=== PATIENT | male | born 1940 | race Asian ===

== ENCOUNTER 2018-02-16 13:31 | Inpatient (IN) | payer MEDICARE, BC ==
[~2018-02-16] VITALS: Ht 160 cm; Wt 54.0 kg
[2018-02-16] MEDS ORDERED: vancomycin/NS 1 GM ADD-VANTAGE 250 ML IV ONE (15:45)
[2018-02-16] MEDS ORDERED: piperacillin/tazo 3.375gm/50ml 50 ML IV ONE (15:45)
[2018-02-16 16:17] LABS: BASOPHILS % (AUTO) 0.1 % (0-1); EOSINOPHILS # (AUTO) 0.1 X10'3 (0-0.9); EOSINOPHILS % (AUTO) 0.5 % (0-6); HEMATOCRIT 38.9 % (42.0-52.0); HEMOGLOBIN 13.3 g/dl (14.0-17.9); LYMPHOCYTES # (AUTO) 0.6 X10'3 (1.1-4.8); LYMPHOCYTES % (AUTO) 4.2 % (21-51); MEAN CORPUSCULAR HEMOGLOBIN 32.1 PG (27.0-31.0); MEAN CORPUSCULAR HGB CONC 34.1 % (33.0-36.5); MEAN CORPUSCULAR VOLUME 93.9 FL (78-98); MEAN PLATELET VOLUME 7.6 FL (7.4-10.4); MONOCYTES # (AUTO) 0.9 X10'3 (0-0.9); MONOCYTES % (AUTO) 6.9 % (2-12); NEUTROPHILS # (AUTO) 11.6 X10'3 (1.8-7.7); NEUTROPHILS % (AUTO) 88.3 % (42-75); PLATELET COUNT 205 X10'3 (140-440); RED BLOOD COUNT 4.14 X10'6 (4.70-6.10); WHITE BLOOD COUNT 13.1 X10'3 (4.5-11.0)
[2018-02-16] MEDS ORDERED: iohexol 300mg/ml 100ml inj. ONE (16:19)
[2018-02-16] MEDS ORDERED: normal saline 1000ML IV soln IVB ONE (16:20)
[2018-02-16 16:23] LABS: CLARITY,URINE CLEAR (Clear); COLOR,URINE YELLOW (Yellow); GLUCOSE, URINE NEGATIVE (Neg); KETONES,URINE TRACE mg/dl (Neg); LEUKOCYTE ESTERASE ,URINE NEGATIVE (Neg); NITRITES, URINE NEGATIVE (Neg); OCCULT BLOOD,URINE MODERATE (Neg); PROTEIN,URINE TRACE mg/dl (Neg)
[2018-02-16 16:28] LABS: UA COLLECTION TYPE CLN CATCH MIDSTREAM
[2018-02-16 16:32] LABS: BACTERIA,URINE FEW /HPF (Neg); SQUAMOUS EPITHELIAL CELL,UR FEW /LPF (FEW); WBC,URINE 0-4 /HPF (0-4)
[2018-02-16 16:36] LABS: ALANINE AMINOTRANSFERASE 18 U/L (12-78); ALBUMIN 2.9 G/DL (3.4-5.0); ALBUMIN/GLOBULIN RATIO 0.7 (1.1-1.5); ALKALINE PHOSPHATASE 88 IU/L (46-116); ANION GAP 11 (8-16); ASPARTATE AMINO TRANSFERASE 16 U/L (10-37); BILIRUBIN,TOTAL 0.4 MG/DL (0.1-1.0); BLOOD UREA NITROGEN 24 MG/DL (7-18); BUN/CREATININE RATIO 14.7 (5.4-32.0); CHLORIDE 102 MMOL/L (99-107); CREATININE 1.63 MG/DL (0.60-1.10); GLUCOSE 100 MG/DL (70-104); POTASSIUM 3.6 MMOL/L (3.5-5.1); SODIUM 136 MMOL/L (135-145); TOTAL CARBON DIOXIDE 23.1 MMOL/L (24-32); TOTAL PROTEIN 7.2 G/DL (6.4-8.2); eGFR 41 ML/MIN
[2018-02-16 16:38] LABS: PARTIAL THROMBOPLASTIN TIME 34 SECONDS (22-32); PROTHROMBIN TIME 9.7 SECONDS (9.0-12.0)
[2018-02-16] MEDS ORDERED: acetaminophen 325mg tablet PO PRN (17:30)
[2018-02-16] MEDS ORDERED: morphine 2 MG/ML inj. syringe IV PRN ×2 (17:30)
[2018-02-16] MEDS ORDERED: potassium Cl 40MEQ/NS 500ml 500 ML IV PRN ×2 (17:30)
[2018-02-16] MEDS ORDERED: magnesium 4gm in 100ml NS 100 ML IV PRN (17:30)
[2018-02-16] MEDS ORDERED: potassium Cl 20 mEq SR tablet PO PRN (17:30)
[2018-02-16] MEDS ORDERED: magnesium Cl slow-release 64mg tablet PO PRN (17:30)
[2018-02-16] MEDS ORDERED: magnesium 1gm/100ml D5W IVPB 100 ML IV PRN (17:30)
[2018-02-16] MEDS ORDERED: ondansetron/PF 4mg/2ml inj IV PRN (17:30)
[2018-02-16] MEDS ORDERED: NIFE60TA69 PO (17:31)
[2018-02-16] MEDS ORDERED: NAPR-56 PO (17:31)
[2018-02-16] MEDS ORDERED: BACDS PO (17:31)
[2018-02-16] MEDS: normal saline 1000ml 1,000 ML IV SCH (18:57)
[2018-02-16 19:50] VITALS: BP 126/63
[2018-02-16] MEDS: piperacillin/tazo 4.5gm/100ml 100 ML IV SCH (23:39)
[2018-02-16 23:57] VITALS: BP 115/59
[2018-02-17 04:55] LABS: BASOPHILS % (AUTO) 0.2 % (0-1); EOSINOPHILS # (AUTO) 0.2 X10'3 (0-0.9); EOSINOPHILS % (AUTO) 2.7 % (0-6); HEMATOCRIT 34.8 % (42.0-52.0); HEMOGLOBIN 11.6 g/dl (14.0-17.9); LYMPHOCYTES # (AUTO) 0.6 X10'3 (1.1-4.8); LYMPHOCYTES % (AUTO) 7.5 % (21-51); MEAN CORPUSCULAR HEMOGLOBIN 31.4 PG (27.0-31.0); MEAN CORPUSCULAR HGB CONC 33.4 % (33.0-36.5); MEAN CORPUSCULAR VOLUME 94.2 FL (78-98); MEAN PLATELET VOLUME 7.9 FL (7.4-10.4); MONOCYTES # (AUTO) 0.7 X10'3 (0-0.9); MONOCYTES % (AUTO) 9.2 % (2-12); NEUTROPHILS # (AUTO) 6.4 X10'3 (1.8-7.7); NEUTROPHILS % (AUTO) 80.4 % (42-75); PLATELET COUNT 180 X10'3 (140-440); RED BLOOD COUNT 3.69 X10'6 (4.70-6.10)
[2018-02-17 05:14] LABS: ALBUMIN 2.3 G/DL (3.4-5.0); ANION GAP 11 (8-16); BLOOD UREA NITROGEN 18 MG/DL (7-18); BUN/CREATININE RATIO 11.9 (5.4-32.0); CALCIUM 7.8 MG/DL (8.5-10.1); CHLORIDE 106 MMOL/L (99-107); CREATININE 1.51 MG/DL (0.60-1.10); GLUCOSE 82 MG/DL (70-104); MAGNESIUM 2.1 MG/DL (1.5-2.4); POTASSIUM 3.1 MMOL/L (3.5-5.1); SODIUM 141 MMOL/L (135-145); TOTAL CARBON DIOXIDE 23.7 MMOL/L (24-32); eGFR 45 ML/MIN
[2018-02-17] MEDS: potassium Cl 20 mEq SR tablet PO PRN ×3 (06:57→21:36)
[2018-02-17 07:00] VITALS: BP 114/63
[2018-02-17] MEDS: piperacillin/tazo 4.5gm/100ml 100 ML IV SCH ×2 (07:00→13:59)
[2018-02-17] MEDS: NIFEdipine XL 30mg tablet PO SCH (07:01)
[2018-02-17] MEDS: K and/or MAG REPLACEMENT MC SCH (08:00)
[2018-02-17 11:00] VITALS: BP 113/58
[2018-02-17] MEDS ORDERED: vancomycin/NS 1 GM ADD-VANTAGE 250 ML IV SCH (17:00)
[2018-02-17] MEDS ORDERED: magnesium hydroxide 30ml (MOM) UD suspension PO PRN (18:50)
[2018-02-17 19:00] VITALS: BP 105/61
[2018-02-17] MEDS: piperacillin/tazobactam inj. 2.25 GM in normal saline 50ml IV IV SCH (20:26)
[2018-02-17] MEDS: docusate sod 100mg capsule PO SCH (21:36)
[2018-02-17] MEDS: HYDROcodone/acetaminophen 5mg/325mg tablet PO PRN (21:37)
[2018-02-18] VITALS: BP 103/55
[2018-02-18] MEDS: piperacillin/tazobactam inj. 2.25 GM in normal saline 50ml IV IV SCH ×4 (02:10→20:06)
[2018-02-18] MEDS: normal saline 1000ml 1,000 ML IV SCH (02:10)
[2018-02-18 05:17] LABS: BASOPHILS % (AUTO) 0.2 % (0-1); EOSINOPHILS # (AUTO) 0.2 X10'3 (0-0.9); EOSINOPHILS % (AUTO) 2.6 % (0-6); HEMATOCRIT 36.6 % (42.0-52.0); HEMOGLOBIN 12.3 g/dl (14.0-17.9); LYMPHOCYTES % (AUTO) 14.2 % (21-51); MEAN CORPUSCULAR HEMOGLOBIN 31.6 PG (27.0-31.0); MEAN CORPUSCULAR HGB CONC 33.5 % (33.0-36.5); MEAN CORPUSCULAR VOLUME 94.4 FL (78-98); MEAN PLATELET VOLUME 7.8 FL (7.4-10.4); MONOCYTES # (AUTO) 0.7 X10'3 (0-0.9); MONOCYTES % (AUTO) 10.2 % (2-12); NEUTROPHILS # (AUTO) 5.3 X10'3 (1.8-7.7); NEUTROPHILS % (AUTO) 72.8 % (42-75); PLATELET COUNT 211 X10'3 (140-440); RED BLOOD COUNT 3.88 X10'6 (4.70-6.10); RED CELL DISTRIBUTION WIDTH 13.8 % (11.5-14.5); WHITE BLOOD COUNT 7.3 X10'3 (4.5-11.0)
[2018-02-18 05:26] LABS: ALBUMIN 2.4 G/DL (3.4-5.0); ANION GAP 9 (8-16); BLOOD UREA NITROGEN 18 MG/DL (7-18); BUN/CREATININE RATIO 11.3 (5.4-32.0); CALCIUM 8.7 MG/DL (8.5-10.1); CHLORIDE 108 MMOL/L (99-107); CREATININE 1.59 MG/DL (0.60-1.10); GLUCOSE 94 MG/DL (70-104); MAGNESIUM 2.1 MG/DL (1.5-2.4); POTASSIUM 4.2 MMOL/L (3.5-5.1); SODIUM 142 MMOL/L (135-145); TOTAL CARBON DIOXIDE 24.6 MMOL/L (24-32); eGFR 43 ML/MIN
[2018-02-18 07:00] VITALS: BP 130/73
[2018-02-18] MEDS: K and/or MAG REPLACEMENT MC SCH (08:00)
[2018-02-18] MEDS: lactobacillus rhamnosus 10,000 MMU CELLS/CAPSULE PO SCH ×2 (08:28→20:06)
[2018-02-18] MEDS: docusate sod 100mg capsule PO SCH ×2 (08:28→20:06)
[2018-02-18] MEDS: NIFEdipine XL 30mg tablet PO SCH (08:28)
[2018-02-18 11:00] VITALS: BP 109/56
[2018-02-18 19:00] VITALS: BP 104/62
[2018-02-18] MEDS: HYDROcodone/acetaminophen 5mg/325mg tablet PO PRN (20:07)
[2018-02-18 23:00] VITALS: BP 134/62
[2018-02-19] MEDS: piperacillin/tazobactam inj. 2.25 GM in normal saline 50ml IV IV SCH ×4 (02:25→19:42)
[2018-02-19 05:08] LABS: BASOPHILS % (AUTO) 0.5 % (0-1); EOSINOPHILS # (AUTO) 0.2 X10'3 (0-0.9); EOSINOPHILS % (AUTO) 3.2 % (0-6); HEMATOCRIT 37.5 % (42.0-52.0); HEMOGLOBIN 12.4 g/dl (14.0-17.9); LYMPHOCYTES # (AUTO) 0.9 X10'3 (1.1-4.8); LYMPHOCYTES % (AUTO) 13.2 % (21-51); MEAN CORPUSCULAR HEMOGLOBIN 31.5 PG (27.0-31.0); MEAN CORPUSCULAR HGB CONC 33.2 % (33.0-36.5); MEAN PLATELET VOLUME 7.9 FL (7.4-10.4); MONOCYTES # (AUTO) 0.8 X10'3 (0-0.9); MONOCYTES % (AUTO) 11.4 % (2-12); NEUTROPHILS % (AUTO) 71.7 % (42-75); PLATELET COUNT 220 X10'3 (140-440); RED BLOOD COUNT 3.95 X10'6 (4.70-6.10); WHITE BLOOD COUNT 6.9 X10'3 (4.5-11.0)
[2018-02-19 05:19] LABS: ANION GAP 9 (8-16); BLOOD UREA NITROGEN 16 MG/DL (7-18); BUN/CREATININE RATIO 12.8 (5.4-32.0); CHLORIDE 107 MMOL/L (99-107); CREATININE 1.25 MG/DL (0.60-1.10); GLUCOSE 80 MG/DL (70-104); POTASSIUM 3.6 MMOL/L (3.5-5.1); SODIUM 141 MMOL/L (135-145)
[2018-02-19 05:20] LABS: ALBUMIN 2.3 G/DL (3.4-5.0); CALCIUM 8.2 MG/DL (8.5-10.1); MAGNESIUM 2.2 MG/DL (1.5-2.4); eGFR 56 ML/MIN
[2018-02-19 07:00] VITALS: BP 138/62
[2018-02-19] MEDS: lactobacillus rhamnosus 10,000 MMU CELLS/CAPSULE PO SCH ×2 (07:19→19:42)
[2018-02-19] MEDS: docusate sod 100mg capsule PO SCH ×2 (07:19→19:42)
[2018-02-19] MEDS: NIFEdipine XL 30mg tablet PO SCH (07:20)
[2018-02-19] MEDS: HYDROcodone/acetaminophen 5mg/325mg tablet PO PRN ×2 (07:21→11:33)
[2018-02-19] MEDS: K and/or MAG REPLACEMENT MC SCH (08:00)
[2018-02-19 11:39] VITALS: BP 103/66
[2018-02-19] MEDS ORDERED: VANCOMYCIN LEVEL IV ONE (16:30)
[2018-02-19] MEDS: heparin, porcine 5000 units/ml vial SQ SCH (19:43)
[2018-02-19 20:00] VITALS: BP 131/63
[2018-02-20] VITALS: BP 132/64
[2018-02-20] MEDS: piperacillin/tazobactam inj. 2.25 GM in normal saline 50ml IV IV SCH ×4 (01:42→19:54)
[2018-02-20 05:30] LABS: BASOPHILS % (AUTO) 0.2 % (0-1); EOSINOPHILS # (AUTO) 0.3 X10'3 (0-0.9); EOSINOPHILS % (AUTO) 3.7 % (0-6); HEMATOCRIT 36.8 % (42.0-52.0); HEMOGLOBIN 12.4 g/dl (14.0-17.9); LYMPHOCYTES # (AUTO) 1.2 X10'3 (1.1-4.8); LYMPHOCYTES % (AUTO) 15.5 % (21-51); MEAN CORPUSCULAR HEMOGLOBIN 31.7 PG (27.0-31.0); MEAN CORPUSCULAR HGB CONC 33.6 % (33.0-36.5); MEAN CORPUSCULAR VOLUME 94.4 FL (78-98); MEAN PLATELET VOLUME 7.9 FL (7.4-10.4); MONOCYTES # (AUTO) 0.9 X10'3 (0-0.9); MONOCYTES % (AUTO) 10.8 % (2-12); NEUTROPHILS # (AUTO) 5.6 X10'3 (1.8-7.7); NEUTROPHILS % (AUTO) 69.8 % (42-75); PLATELET COUNT 251 X10'3 (140-440); RED BLOOD COUNT 3.89 X10'6 (4.70-6.10); RED CELL DISTRIBUTION WIDTH 13.9 % (11.5-14.5)
[2018-02-20 05:45] LABS: ALBUMIN 2.3 G/DL (3.4-5.0); ANION GAP 9 (8-16); BLOOD UREA NITROGEN 20 MG/DL (7-18); CALCIUM 8.6 MG/DL (8.5-10.1); CHLORIDE 106 MMOL/L (99-107); CREATININE 1.33 MG/DL (0.60-1.10); GLUCOSE 83 MG/DL (70-104); MAGNESIUM 2.3 MG/DL (1.5-2.4); POTASSIUM 3.6 MMOL/L (3.5-5.1); SODIUM 140 MMOL/L (135-145); TOTAL CARBON DIOXIDE 24.7 MMOL/L (24-32); eGFR 52 ML/MIN
[2018-02-20] MEDS: NIFEdipine XL 30mg tablet PO SCH (06:50)
[2018-02-20] MEDS: HYDROcodone/acetaminophen 5mg/325mg tablet PO PRN ×2 (06:50→19:56)
[2018-02-20] MEDS: lactobacillus rhamnosus 10,000 MMU CELLS/CAPSULE PO SCH ×2 (06:51→19:54)
[2018-02-20] MEDS: docusate sod 100mg capsule PO SCH ×2 (06:51→19:56)
[2018-02-20] MEDS: heparin, porcine 5000 units/ml vial SQ SCH ×2 (06:52→19:55)
[2018-02-20 07:00] VITALS: BP 109/72
[2018-02-20] MEDS: K and/or MAG REPLACEMENT MC SCH (08:00)
[2018-02-20 11:00] VITALS: BP 100/55
[2018-02-20 19:00] VITALS: BP 120/67
[2018-02-21 00:04] VITALS: BP 125/60
[2018-02-21] MEDS: piperacillin/tazobactam inj. 2.25 GM in normal saline 50ml IV IV SCH ×4 (01:56→19:54)
[2018-02-21 05:12] LABS: BASOPHILS % (AUTO) 0.4 % (0-1); EOSINOPHILS # (AUTO) 0.3 X10'3 (0-0.9); EOSINOPHILS % (AUTO) 4.1 % (0-6); HEMATOCRIT 38.1 % (42.0-52.0); HEMOGLOBIN 12.8 g/dl (14.0-17.9); LYMPHOCYTES # (AUTO) 1.7 X10'3 (1.1-4.8); LYMPHOCYTES % (AUTO) 24.7 % (21-51); MEAN CORPUSCULAR HEMOGLOBIN 31.9 PG (27.0-31.0); MEAN CORPUSCULAR HGB CONC 33.7 % (33.0-36.5); MEAN CORPUSCULAR VOLUME 94.6 FL (78-98); MEAN PLATELET VOLUME 7.6 FL (7.4-10.4); MONOCYTES # (AUTO) 0.7 X10'3 (0-0.9); MONOCYTES % (AUTO) 10.8 % (2-12); PLATELET COUNT 298 X10'3 (140-440); RED BLOOD COUNT 4.02 X10'6 (4.70-6.10); RED CELL DISTRIBUTION WIDTH 13.9 % (11.5-14.5); WHITE BLOOD COUNT 6.7 X10'3 (4.5-11.0)
[2018-02-21 05:24] LABS: ALBUMIN 2.4 G/DL (3.4-5.0); ANION GAP 9 (8-16); BLOOD UREA NITROGEN 18 MG/DL (7-18); BUN/CREATININE RATIO 13.2 (5.4-32.0); CHLORIDE 105 MMOL/L (99-107); CREATININE 1.36 MG/DL (0.60-1.10); GLUCOSE 82 MG/DL (70-104); MAGNESIUM 2.3 MG/DL (1.5-2.4); POTASSIUM 3.6 MMOL/L (3.5-5.1); SODIUM 141 MMOL/L (135-145); TOTAL CARBON DIOXIDE 27.4 MMOL/L (24-32); eGFR 51 ML/MIN
[2018-02-21] MEDS: HYDROcodone/acetaminophen 5mg/325mg tablet PO PRN (06:30)
[2018-02-21 08:00] VITALS: BP 136/69
[2018-02-21] MEDS: K and/or MAG REPLACEMENT MC SCH (08:00)
[2018-02-21] MEDS: lactobacillus rhamnosus 10,000 MMU CELLS/CAPSULE PO SCH ×2 (08:11→19:55)
[2018-02-21] MEDS: NIFEdipine XL 30mg tablet PO SCH (08:11)
[2018-02-21] MEDS: docusate sod 100mg capsule PO SCH ×2 (08:12→19:54)
[2018-02-21] MEDS: heparin, porcine 5000 units/ml vial SQ SCH ×2 (08:12→19:55)
[2018-02-21 11:00] VITALS: BP 123/66
[2018-02-21 19:26] VITALS: BP 128/63
[2018-02-22] VITALS (20 sets, daily range): BP systolic 105–147; BP diastolic 51–86
[2018-02-22] MEDS: piperacillin/tazobactam inj. 2.25 GM in normal saline 50ml IV IV SCH ×4 (02:15→20:24)
[2018-02-22 04:57] LABS: MAGNESIUM 2.3 MG/DL (1.5-2.4)
[2018-02-22] MEDS: heparin, porcine 5000 units/ml vial SQ SCH ×2 (07:36→20:30)
[2018-02-22 07:44] LABS: BASOPHILS % (AUTO) 0.5 % (0-1); EOSINOPHILS # (AUTO) 0.3 X10'3 (0-0.9); EOSINOPHILS % (AUTO) 4.4 % (0-6); HEMATOCRIT 35.9 % (42.0-52.0); HEMOGLOBIN 12.1 g/dl (14.0-17.9); LYMPHOCYTES # (AUTO) 1.1 X10'3 (1.1-4.8); LYMPHOCYTES % (AUTO) 17.3 % (21-51); MEAN CORPUSCULAR HEMOGLOBIN 31.7 PG (27.0-31.0); MEAN CORPUSCULAR HGB CONC 33.8 % (33.0-36.5); MONOCYTES # (AUTO) 0.6 X10'3 (0-0.9); MONOCYTES % (AUTO) 9.1 % (2-12); NEUTROPHILS # (AUTO) 4.2 X10'3 (1.8-7.7); NEUTROPHILS % (AUTO) 68.7 % (42-75); PLATELET COUNT 303 X10'3 (140-440); RED BLOOD COUNT 3.82 X10'6 (4.70-6.10); RED CELL DISTRIBUTION WIDTH 13.7 % (11.5-14.5); WHITE BLOOD COUNT 6.2 X10'3 (4.5-11.0)
[2018-02-22 07:58] LABS: ALANINE AMINOTRANSFERASE 23 U/L (12-78); ALBUMIN 2.3 G/DL (3.4-5.0); ALBUMIN/GLOBULIN RATIO 0.5 (1.1-1.5); ALKALINE PHOSPHATASE 68 IU/L (46-116); ANION GAP 8 (8-16); ASPARTATE AMINO TRANSFERASE 21 U/L (10-37); BILIRUBIN,TOTAL 0.3 MG/DL (0.1-1.0); BLOOD UREA NITROGEN 22 MG/DL (7-18); BUN/CREATININE RATIO 16.2 (5.4-32.0); CHLORIDE 107 MMOL/L (99-107); CREATININE 1.36 MG/DL (0.60-1.10); GLUCOSE 88 MG/DL (70-104); SODIUM 141 MMOL/L (135-145); TOTAL CARBON DIOXIDE 26.3 MMOL/L (24-32); TOTAL PROTEIN 6.8 G/DL (6.4-8.2); eGFR 51 ML/MIN
[2018-02-22] MEDS: K and/or MAG REPLACEMENT MC SCH (08:00)
[2018-02-22] MEDS: lactobacillus rhamnosus 10,000 MMU CELLS/CAPSULE PO SCH ×2 (08:00→20:30)
[2018-02-22] MEDS: docusate sod 100mg capsule PO SCH ×2 (08:00→20:30)
[2018-02-22 08:15] LABS: PROTHROMBIN TIME 9.9 SECONDS (9.0-12.0)
[2018-02-22] MEDS: NIFEdipine XL 30mg tablet PO SCH (08:45)
[2018-02-22] MEDS: normal saline 1000ml 1,000 ML IV SCH ×2 (09:09→20:31)
[2018-02-22] MEDS ORDERED: ceFAZolin 1000mg inj ONE (12:27)
[2018-02-22] MEDS ORDERED: sevoflurane 250ml liquid IH ONE (12:48)
[2018-02-22] MEDS ORDERED: propofol inj 20 ML IV ONE (12:51)
[2018-02-22] MEDS ORDERED: midazolam 2 mg/2 ml injection ONE (12:51)
[2018-02-22] MEDS ORDERED: fentaNYL/PF 50MCG/1 ML 2ML syringe ONE (12:51)
[2018-02-22] MEDS ORDERED: proCHLORperazine 10 MG/2 ml inj IV PRN (13:10)
[2018-02-22] MEDS ORDERED: meperidine/PF 25mg/ml syringe IV PRN ×3 (13:10)
[2018-02-22] MEDS ORDERED: ondansetron/PF 4mg/2ml inj IV PRN (13:10)
[2018-02-22] MEDS ORDERED: morphine 4 MG/ML inj SYRINge IV PRN ×2 (13:10)
[2018-02-22] MEDS ORDERED: ringers solution, lacted 1,000 ML IV SCH (13:10)
[2018-02-22] MEDS: HYDROcodone/acetaminophen 5mg/325mg tablet PO PRN (15:37)
[2018-02-23] VITALS: BP 116/63
[2018-02-23] MEDS: piperacillin/tazobactam inj. 2.25 GM in normal saline 50ml IV IV SCH ×2 (02:07→09:22)
[2018-02-23 05:51] LABS: MAGNESIUM 2.3 MG/DL (1.5-2.4)
[2018-02-23] MEDS: NIFEdipine XL 30mg tablet PO SCH (07:45)
[2018-02-23] MEDS: lactobacillus rhamnosus 10,000 MMU CELLS/CAPSULE PO SCH ×2 (07:45→19:42)
[2018-02-23] MEDS: docusate sod 100mg capsule PO SCH ×2 (07:46→19:42)
[2018-02-23] MEDS: heparin, porcine 5000 units/ml vial SQ SCH ×2 (07:47→19:42)
[2018-02-23] MEDS: K and/or MAG REPLACEMENT MC SCH (08:00)
[2018-02-23 09:10] LABS: ALANINE AMINOTRANSFERASE 38 U/L (12-78); ALBUMIN 2.2 G/DL (3.4-5.0); ALBUMIN/GLOBULIN RATIO 0.5 (1.1-1.5); ALKALINE PHOSPHATASE 67 IU/L (46-116); ANION GAP 12 (8-16); ASPARTATE AMINO TRANSFERASE 49 U/L (10-37); BILIRUBIN,TOTAL 0.4 MG/DL (0.1-1.0); BLOOD UREA NITROGEN 16 MG/DL (7-18); BUN/CREATININE RATIO 12.2 (5.4-32.0); CALCIUM 8.2 MG/DL (8.5-10.1); CHLORIDE 107 MMOL/L (99-107); CREATININE 1.31 MG/DL (0.60-1.10); GLUCOSE 75 MG/DL (70-104); POTASSIUM 3.8 MMOL/L (3.5-5.1); SODIUM 143 MMOL/L (135-145); TOTAL CARBON DIOXIDE 23.8 MMOL/L (24-32); TOTAL PROTEIN 6.7 G/DL (6.4-8.2); eGFR 53 ML/MIN
[2018-02-23 09:37] LABS: BASOPHILS % (AUTO) 0.3 % (0-1); EOSINOPHILS # (AUTO) 0.2 X10'3 (0-0.9); EOSINOPHILS % (AUTO) 3.1 % (0-6); HEMATOCRIT 35.5 % (42.0-52.0); HEMOGLOBIN 11.8 g/dl (14.0-17.9); LYMPHOCYTES % (AUTO) 16.5 % (21-51); MEAN CORPUSCULAR HEMOGLOBIN 31.3 PG (27.0-31.0); MEAN CORPUSCULAR HGB CONC 33.3 % (33.0-36.5); MEAN CORPUSCULAR VOLUME 94.1 FL (78-98); MEAN PLATELET VOLUME 7.6 FL (7.4-10.4); MONOCYTES # (AUTO) 0.5 X10'3 (0-0.9); MONOCYTES % (AUTO) 7.8 % (2-12); NEUTROPHILS # (AUTO) 4.2 X10'3 (1.8-7.7); NEUTROPHILS % (AUTO) 72.3 % (42-75); PLATELET COUNT 339 X10'3 (140-440); RED BLOOD COUNT 3.77 X10'6 (4.70-6.10); RED CELL DISTRIBUTION WIDTH 14.1 % (11.5-14.5); WHITE BLOOD COUNT 5.8 X10'3 (4.5-11.0)
[2018-02-23] MEDS: normal saline 1000ml 1,000 ML IV SCH (11:11)
[2018-02-23 11:49] VITALS: BP 107/68
[2018-02-23] MEDS ORDERED: vancomycin/NS 1 GM ADD-VANTAGE 250 ML IV SCH (12:45)
[2018-02-23 20:00] VITALS: BP 129/60
[2018-02-24] VITALS: BP 138/70
[2018-02-24] MEDS: normal saline 1000ml 1,000 ML IV SCH (01:25)
[2018-02-24 07:47] VITALS: BP 134/71
[2018-02-24] MEDS: K and/or MAG REPLACEMENT MC SCH (08:00)
[2018-02-24] MEDS: lactobacillus rhamnosus 10,000 MMU CELLS/CAPSULE PO SCH (09:44)
[2018-02-24] MEDS: docusate sod 100mg capsule PO SCH (09:44)
[2018-02-24] MEDS: heparin, porcine 5000 units/ml vial SQ SCH (09:45)
[2018-02-24] MEDS: NIFEdipine XL 30mg tablet PO SCH (09:45)
[2018-02-24] MEDS ORDERED: HYDR-4383 PO (12:17)
[2018-02-24] MEDS ORDERED: LINE600T36 PO (12:17)
[2018-02-24 12:20] VITALS: BP 149/69
[2018-02-24] MEDS ORDERED: vancomycin/NS 1 GM ADD-VANTAGE 250 ML IV SCH (13:00)
[2018-02-27] MEDS ORDERED: VANCOMYCIN LEVEL IV ONE (12:30)
== END 2018-02-24 16:52 | disposition home health service (06) | DRG 854 ==
LOC: ER 13:31 → ED HOLD 17:29 → SUR 3N 19:11 → PACU 02-22 12:47 → SUR 3N 02-22 14:48
PROVIDERS: ADMIT Internal Medicine; ATTEND Internal Medicine
PROC: BW211ZZ Computerized Tomography (CT Scan) of Abdomen and Pelvis using Low Osmolar Contrast (ICD-10-PCS; 2018-02-16)
PROC: 0Y960ZZ Drainage of Left Inguinal Region, Open Approach (ICD-10-PCS; 2018-02-22)
PROC: 0JDC0ZZ Extraction of Pelvic Region Subcutaneous Tissue and Fascia, Open Approach (ICD-10-PCS; principal; 2018-02-22 12:48)
DX: A41.9 Sepsis, unspecified organism (principal); L03.314 Cellulitis of groin; E44.0 Moderate protein-calorie malnutrition; L03.116 Cellulitis of left lower limb; L02.214 Cutaneous abscess of groin; B95.62 Methicillin resistant Staphylococcus aureus infection as the cause of diseases classified elsewhere; I12.9 Hypertensive chronic kidney disease with stage 1 through stage 4 chronic kidney disease, or unspecified chronic kidney disease; N18.2 Chronic kidney disease, stage 2 (mild); J44.9 Chronic obstructive pulmonary disease, unspecified; N40.0 Benign prostatic hyperplasia without lower urinary tract symptoms; N28.1 Cyst of kidney, acquired; M10.9 Gout, unspecified; R59.1 Generalized enlarged lymph nodes; Z66 Do not resuscitate; Z79.899 Other long term (current) drug therapy; Z87.442 Personal history of urinary calculi; Z68.21 Body mass index [BMI] 21.0-21.9, adult
CPT/HCPCS: 36415; 71045; 73600; 73721; 74177; 80048; 80053; 81001; 83605; 83735; 84145; 85025; 85610; 85730; 87040; 87070; 87077; 87186; 93005; 96365; 96375; 99285; A7000; G0378; J0690; J1644; J2250; J2543; J2704; J3010; J3370; J7030; J7120; Q9967

== ENCOUNTER 2018-02-25 05:49 | Emergency (ER) | payer MEDICARE, BC ==
[~2018-02-25] VITALS: Ht 160 cm; Wt 56.8 kg
[~2018-02-25 05:49] MED LIST: HYDR-4383 PO; LINE600T36 PO; NIFE60TA69 PO
[2018-02-25 05:57] VITALS: BP 128/73
== END 2018-02-25 09:54 | disposition home or self-care (01) ==
LOC: ER 05:50
DX: Z48.01 Encounter for change or removal of surgical wound dressing (principal); I10 Essential (primary) hypertension
CPT/HCPCS: 99282

== ENCOUNTER 2018-02-27 12:28 | Emergency (ER) | payer MEDICARE, BC ==
[~2018-02-27] VITALS: Ht 160 cm; Wt 62.3 kg
[2018-02-27 12:58] VITALS: BP 125/60
[2018-02-28] MEDS ORDERED: PRED20TA PO (09:20)
== END 2018-02-27 13:37 | disposition home or self-care (01) ==
LOC: ER 12:29
DX: L02.214 Cutaneous abscess of groin (principal); I10 Essential (primary) hypertension
CPT/HCPCS: 99282

== ENCOUNTER 2018-02-28 08:51 | Day surgery (SDC) | payer MEDICARE, BC ==
[2018-02-28] MEDS ORDERED: PRED20TA PO (09:20)
[2018-02-28] MEDS ORDERED: LIDOcaine 2% 5ml jelly MM ONE (12:40)
== END 2018-02-28 11:02 | disposition home or self-care (01) ==
LOC: WOUND CARE 08:51
PROVIDERS: ATTEND Surgery
DX: T81.89XA Other complications of procedures, not elsewhere classified, initial encounter (principal); L98.492 Non-pressure chronic ulcer of skin of other sites with fat layer exposed; L02.214 Cutaneous abscess of groin; I10 Essential (primary) hypertension; J44.9 Chronic obstructive pulmonary disease, unspecified; M10.9 Gout, unspecified; E44.0 Moderate protein-calorie malnutrition; N40.0 Benign prostatic hyperplasia without lower urinary tract symptoms; Z79.899 Other long term (current) drug therapy; Z87.442 Personal history of urinary calculi; Z68.21 Body mass index [BMI] 21.0-21.9, adult
CPT/HCPCS: 97605

== ENCOUNTER 2018-03-06 09:19 | Day surgery (SDC) | payer MEDICARE, BC ==
[~2018-03-06 09:19] MED LIST changes: +PRED20TA PO
== END 2018-03-06 12:01 | disposition home or self-care (01) ==
LOC: WOUND CARE 09:19
PROVIDERS: ATTEND Surgery
DX: T81.89XD Other complications of procedures, not elsewhere classified, subsequent encounter (principal); L98.492 Non-pressure chronic ulcer of skin of other sites with fat layer exposed; L02.214 Cutaneous abscess of groin; I10 Essential (primary) hypertension; J44.9 Chronic obstructive pulmonary disease, unspecified; M10.9 Gout, unspecified; E44.0 Moderate protein-calorie malnutrition; N40.0 Benign prostatic hyperplasia without lower urinary tract symptoms; Z79.899 Other long term (current) drug therapy; Z87.442 Personal history of urinary calculi; Z68.21 Body mass index [BMI] 21.0-21.9, adult
CPT/HCPCS: 97597; A4456

== ENCOUNTER 2018-03-14 09:12 | Day surgery (SDC) | payer MEDICARE, BC ==
[~2018-03-14 09:12] MED LIST changes: -LINE600T36 PO
== END 2018-03-14 10:55 | disposition home or self-care (01) ==
LOC: WOUND CARE 09:12
PROVIDERS: ATTEND Surgery
DX: T81.89XD Other complications of procedures, not elsewhere classified, subsequent encounter (principal); L98.492 Non-pressure chronic ulcer of skin of other sites with fat layer exposed; L02.214 Cutaneous abscess of groin; I10 Essential (primary) hypertension; J44.9 Chronic obstructive pulmonary disease, unspecified; M10.9 Gout, unspecified; E44.0 Moderate protein-calorie malnutrition; N40.0 Benign prostatic hyperplasia without lower urinary tract symptoms; Z79.899 Other long term (current) drug therapy; Z87.442 Personal history of urinary calculi; Z68.21 Body mass index [BMI] 21.0-21.9, adult; Y83.8 Other surgical procedures as the cause of abnormal reaction of the patient, or of later complication, without mention of misadventure at the time of the procedure
CPT/HCPCS: 97597; A6021; A6212

== ENCOUNTER 2018-03-21 09:00 | Day surgery (SDC) | payer MEDICARE, BC | END 2018-03-21 10:22 | disposition home or self-care (01) | LOC: WOUND CARE 09:00 | PROVIDERS: ATTEND Surgery | DX: T81.89XD Other complications of procedures, not elsewhere classified, subsequent encounter (principal); L98.492 Non-pressure chronic ulcer of skin of other sites with fat layer exposed; L02.214 Cutaneous abscess of groin; I10 Essential (primary) hypertension; J44.9 Chronic obstructive pulmonary disease, unspecified; M10.9 Gout, unspecified; E44.0 Moderate protein-calorie malnutrition; N40.0 Benign prostatic hyperplasia without lower urinary tract symptoms; Z79.899 Other long term (current) drug therapy; Z87.442 Personal history of urinary calculi; Z68.21 Body mass index [BMI] 21.0-21.9, adult; Y83.8 Other surgical procedures as the cause of abnormal reaction of the patient, or of later complication, without mention of misadventure at the time of the procedure | CPT/HCPCS: 17250; A6021; A6212 ==

== ENCOUNTER 2018-04-04 09:20 | Outpatient (CLI) | payer MEDICARE, BC | END 2018-04-04 10:40 | disposition home or self-care (01) | LOC: WOUND CARE 09:20 → EDSTATUS 09:30 → WOUND CARE 10:40 | PROVIDERS: ATTEND Surgery | DX: T81.89XD Other complications of procedures, not elsewhere classified, subsequent encounter (principal); L98.492 Non-pressure chronic ulcer of skin of other sites with fat layer exposed; L02.214 Cutaneous abscess of groin; I10 Essential (primary) hypertension; J44.9 Chronic obstructive pulmonary disease, unspecified; M10.9 Gout, unspecified; E44.0 Moderate protein-calorie malnutrition; N40.0 Benign prostatic hyperplasia without lower urinary tract symptoms; Z79.899 Other long term (current) drug therapy; Z87.442 Personal history of urinary calculi; Z68.21 Body mass index [BMI] 21.0-21.9, adult; Y83.8 Other surgical procedures as the cause of abnormal reaction of the patient, or of later complication, without mention of misadventure at the time of the procedure | CPT/HCPCS: G0463 ==

== ENCOUNTER 2018-09-07 18:01 | Emergency (ER) | payer MEDICARE, BC ==
[~2018-09-07] VITALS: Ht 160 cm; Wt 61.4 kg
[2018-09-07 18:20] VITALS: BP 151/62
[2018-09-07 18:49] LABS: BASOPHILS % (AUTO) 0.8 % (0-1); EOSINOPHILS # (AUTO) 0.2 X10'3 (0-0.9); EOSINOPHILS % (AUTO) 4.3 % (0-6); HEMATOCRIT 41.4 % (42.0-52.0); HEMOGLOBIN 14.1 g/dl (14.0-17.9); LYMPHOCYTES # (AUTO) 1.6 X10'3 (1.1-4.8); MEAN CORPUSCULAR HEMOGLOBIN 30.6 PG (27.0-31.0); MEAN CORPUSCULAR HGB CONC 34.1 g/dL (33.0-36.5); MEAN CORPUSCULAR VOLUME 89.8 FL (78-98); MEAN PLATELET VOLUME 7.4 FL (7.4-10.4); MONOCYTES # (AUTO) 0.4 X10'3 (0-0.9); NEUTROPHILS # (AUTO) 2.9 X10'3 (1.8-7.7); NEUTROPHILS % (AUTO) 55.9 % (42-75); PLATELET COUNT 201 X10'3 (140-440); RED BLOOD COUNT 4.62 X10'6 (4.70-6.10); RED CELL DISTRIBUTION WIDTH 15.3 % (11.5-14.5); WHITE BLOOD COUNT 5.2 X10'3 (4.5-11.0)
[2018-09-07 19:03] LABS: ALANINE AMINOTRANSFERASE 23 U/L (12-78); ALBUMIN 3.7 G/DL (3.4-5.0); ALBUMIN/GLOBULIN RATIO 1.1 (1.1-1.5); ALKALINE PHOSPHATASE 95 IU/L (46-116); AMYLASE 100 U/L (25-115); ANION GAP 8 (8-16); ASPARTATE AMINO TRANSFERASE 25 U/L (10-37); BILIRUBIN,TOTAL 0.3 MG/DL (0.1-1.0); BLOOD UREA NITROGEN 19 MG/DL (7-18); BUN/CREATININE RATIO 14.4 (5.4-32.0); CALCIUM 8.6 MG/DL (8.5-10.1); CHLORIDE 106 MMOL/L (99-107); CREATININE 1.32 MG/DL (0.60-1.10); GLUCOSE 101 MG/DL (70-104); LIPASE 269 U/L (73-393); POTASSIUM 3.6 MMOL/L (3.5-5.1); SODIUM 141 MMOL/L (135-145); TOTAL CARBON DIOXIDE 27.5 MMOL/L (24-32); TOTAL PROTEIN 7.1 G/DL (6.4-8.2); eGFR 53 ML/MIN
[2018-09-07] MEDS ORDERED: ondansetron 4mg rapidly disintigrating tab PO ONE (20:10)
[2018-09-07] MEDS ORDERED: meclizine 12.5mg tablet PO ONE (20:10)
--- NOTE | 2018-09-07 20:17 | NUR ---
BLUE ENTREPRENEURIAL FINANCE PROFESSOR PHONE SET UP FOR MD TO SPEAK WITH PATIENT. ENTREPRENEURIAL FINANCE PROFESSOR NATHAN, ID # [id number].
--- NOTE | 2018-09-07 20:23 | NUR ---
MD AT BEDSIDE SPEAKING WITH PATIENT USING OPINION POLLS SURVEY WORKER PHONE LINE.
[2018-09-07] MEDS ORDERED: amoxicillin 250mg capsule PO ONE (20:40)
[2018-09-07] MEDS ORDERED: AMOX500C2 PO (20:41)
[2018-09-07] MEDS ORDERED: ONDA8TAB6 PO (20:41)
[2018-09-07] MEDS ORDERED: MECL12.584 PO (20:41)
== END 2018-09-07 20:54 | disposition home or self-care (01) ==
LOC: ER 20:54
DX: H81.10 Benign paroxysmal vertigo, unspecified ear (principal); H66.92 Otitis media, unspecified, left ear; I10 Essential (primary) hypertension; M10.9 Gout, unspecified; Z87.442 Personal history of urinary calculi; Z79.2 Long term (current) use of antibiotics; Z79.899 Other long term (current) drug therapy
CPT/HCPCS: 36415; 80053; 82150; 83690; 85025; 85610; 93005; 99284; J8597

== ENCOUNTER 2024-09-08 19:15 | Emergency (ER) | payer MEDICARE, BC ==
[~2024-09-08 19:15] MED LIST changes: +FLUT12AE4 INH; +MECL-226 PO; +NIFE-33 PO; -NIFE60TA69 PO; +ONDA8TAB6 PO
[2024-09-08 19:17] VITALS: TEMP 98.2
--- NOTE | 2024-09-08 19:32 | ELECTROCARDIOGRAPH REPORT ---
[facility] Test Date: 2024-09-08 Test Time: 19:29:03 Pat Name: FLORA DUMONT Department: [facility]-ER Patient ID: [facility]-[id number] Room: Gender: M President/[employer] Experiences: KAMALA : 1940 Requested By: LYNN SHUKLA Order Number: [id number] Reading MD: Measurements Intervals [place] Rate: 57 P: 72 ND: 143 QRS: 69 QRSD: 101 T: 114 QT: 400 QTc: 390 Interpretive Statements Sinus bradycardia Probable anteroseptal infarct, recent Please click the below link to view image of tracing.
--- NOTE | 2024-09-08 19:38 | Physician Documentation ---
History of Present Illness ~ Chief Complaint: Dizziness Stated Complaint: WEAKNESS Time Seen by MD: 19:27 Primary Medical Doctor: Dr. Means [facility] This is a 83-year-old male who presents with one day of nausea, vomiting, and feeling of lightheadedness onset at 4:00 p.m. today, patient reports no aggravating or relieving factors. Patient is accompanied by his who reports patient has not had any change in speech or appearance of the weakness or facial drooping. Patient reports he recently finished a course of antibiotics for an upper respiratory tract infection. 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 She reports no other acute symptoms or concerns including headache, no numbness, no focal weakness. Medication Reconciliation Allergies: Coded Allergies: No Known Allergies (Unverified , 06/16/14) Scheduled Fluticasone/Salmeterol (Advair Hfa 115-21 Mcg Inhaler), 2 PUFFS INH Q12H Meclizine HCl (Meclizine HCl), 1-2 TAB PO Q12H Nifedipine ER* (Nifedipine Er*), 1 TAB PO DAILY, (Reported) Ondansetron Hcl (Zofran), 1 TAB PO Q8H Prednisone* (Prednisone*), 1 TAB PO DAILY, (Reported) Scheduled PRN Hydrocodone/Acetaminophen ([place] 5-325 Tablet), 1 TAB PO Q4H PRN for moderate pain 4-6 Meclizine Hcl (Meclizine Hcl), 1 TAB PO Q8H PRN for dizziness/vertigo ONDANSETRON ODT 4mg tablet (Ondansetron Odt), 1 TAB PO Q6H PRN PRN for nausea/vomiting Past Medical History Past Medical History: Hypertension, Kidney Stones, Gout Past Surgical History: other Patient History: Patient reports no known family medical history. Alcohol Use: None Drug Use: none Lives with: Spouse Lives In: Home Review of Systems ROS Lightheadedness with nausea and vomiting as stated above in the HPI, otherwise all systems are reviewed and negative. Physical Exam Vital Signs: Temperature: 98.2, Heart Rate: 61, Respiratory Rate: 16, BP: 170/71, Pulse Oximetry: 96 Oxygen Flow Rate: 0 Physical Exam VITALS: Reviewed and as above. GENERAL: Alert, nontoxic appearing, no apparent distress. HEENT: RESPIRATORY: No increased work of breathing, no respiratory distress, speaking in full clear sentences CHEST: CV: BACK: GI: Nondistended MUSCULOSKELETAL: SKIN: NEURO: Alert and oriented x 4, GCS 15. No facial droop. Normal muscle strength and tone, normal finger to nose coordination, no pronator drift, speech clear, and normal gait. Positive Romberg. Progress Results/Orders Results/Orders Orders - STIVEN TEJEDA ACCOUNTING MACHINE OPERATOR Stat Ekg (09/08/24 ) Completed Orders - STIVEN TEJEDA ACCOUNTING MACHINE OPERATOR Normal Saline 1000ml (Sodium Chloride 10 (09/08/24 20:30) Ekg/Acs Related Symptoms (09/08/24 ) Ondansetron Disint. Tablet (Zofran Odt T (09/08/24 21:50) Meclizine Tablets (Antivert Tablet) (09/08/24 21:50) Medications Received in ER Medications (Trade) Dose Ordered Sig/Karen Route PRN Reason Start Time Stop Time Status Last Admin Dose Admin (Zofran ODT tablet) 8 mg ONCE ONCE PO 09/08/24 21:50 09/08/24 21:51 DC 09/08/24 22:07 8 MG (Antivert tablet) 12.5 mg ONCE ONCE PO 09/08/24 21:50 09/08/24 21:55 DC 09/08/24 22:07 12.5 MG Vital Signs 09/08/24 09/08/24 19:17 23:15 Temp 98.2 Pulse 61 64 Resp 16 16 B/P (MAP) 170/71 163/78 Pulse Ox 96 98 O2 Flow Rate 0 Laboratory Tests Test 09/08/24 19:23 09/08/24 19:38 09/08/24 21:33 09/08/24 22:51 Glucometer 121 H White Blood Count 5.0 Red Blood Count 4.63 L Hemoglobin 14.2 Hematocrit 42.9 Mean Corpuscular Volume 92.5 Mean Corpuscular Hemoglobin 30.7 Mean Corpuscular Hemoglobin Concent 33.1 Red Cell Distribution Width 15.0 H Platelet Count 207 Mean Platelet Volume 7.8 Neutrophils (%) (Auto) 66.3 Lymphocytes (%) (Auto) 25.7 Monocytes (%) (Auto) 6.9 Eosinophils (%) (Auto) 0.7 Basophils (%) (Auto) 0.4 Neutrophils # (Auto) 3.3 Lymphocytes # (Auto) 1.3 Monocytes # (Auto) 0.3 Eosinophils # (Auto) 0.0 Basophils # (Auto) 0.0 CBC Comment Sodium Level 138 Potassium Level 4.6 Chloride Level 104 Carbon Dioxide Level 27.5 Anion Gap 7 L Blood Urea Nitrogen 27 H Creatinine 1.41 H Estimated GFR/1.73 m2 48 BUN/Creatinine Ratio 19.1 Glucose Level 111 H Calcium Level 8.8 Total Bilirubin 0.5 Aspartate Amino Transf (AST/SGOT) 18 Alanine Aminotransferase (ALT/SGPT) 23 Alkaline Phosphatase 105 Troponin I High Sensitivity 9 10 14 Pro-B-Type Natriuretic Peptide 438 Total Protein 7.8 Albumin 3.9 Globulin 3.9 Albumin/Globulin Ratio 1.0 L Lipase 98 H Chemistry Comments Troponin I High Sens Percent Delta 11 40 Troponin I Hi Sens Absolute Change 1 4 EKG/XRAY/CT/US/VASC/MRI EKG #1: Additional Comment EKG at 7:29 p.m. interpreted by myself as sinus bradycardia at a rate of 57, normal axis, nonspecific ST changes leads V2, V3, and V4 EKG #2: Additional Comment Repeat EKG at 8:58 p.m. interpreted by myself as sinus rhythm at a rate of 60, normal axis, nonspecific ST-T changes in leads V2, V3, and V4 unchanged from previous EKG Chest X-Ray : Additional Comments CHEST RADIOGRAPH Indication: CP Technique: Single frontal view of the chest was obtained COMPARISON: DI CHEST,SINGLE VIEW on DOS: 09/09/23 FINDINGS: Lines and Tubes: None Lungs: Clear Pleura: No effusion. No pneumothorax. Cardiomediastinal contours: Unremarkable IMPRESSION: No abnormality demonstrated. Electronically Signed by:MURTAZA BARBOSA MD Date & Time: 09/08/241958 Dictated by: MURTAZA BARBOSA MD Dictation date and time: 09/08/241941 I have reviewed and agree with the radiology report. I have reviewed and interpreted the imaging as: No focal consolidation or pneumothorax Medical Decision Making Findings This 83-year-old male with history of BPPV presented with feelings of lightheadedness, nausea, and vomiting. It was reassuring patient reported no headache, weakness, or numbness and had a benign physical exam including normal neurologic exam with the exception of some imbalance on Romberg though patient was ambulating with a steady gait in the emergency department. EKG did have some abnormality in V2 and V3 though repeat EKG showed the same abnormality indicating this is an old finding. Lab work was reassuring without elevated troponins, evidence of infection, or significant electrolyte or metabolic abnormality. Patient responded well to Zofran fluids and reported decrease in dizziness symptoms with meclizine. Patient reports feeling improved symptoms and wishes to go home, with shared decision-making and careful return precautions patient will be discharged home, patient will return to the emergency department or call 911 if symptoms worsen or if you develops any new or worsening symptoms. Patient verbalized understanding of need for follow up and will follow up with his primary care provider Dr. Means on Tuesday. Patient hemodynamically stable and appropriate for outpatient follow up. Differential Dx:Considerations: Include: CVA, dehydration, dysrhythmia, e lectrolyte imbalance, hypoglycemia, hypotension, Meniere's disease, myocardial infarction, pulmonary embolus, TIA, vertigo central, vertigo peripheral, vestibular neuronitis Departure Time of Disposition: 22:40 Disposition: HOME / SELF CARE / HOMELESS Impression: Primary Impression: Dizziness Additional Impression: Nausea and vomiting Qualified Codes: R11.2 - Nausea with vomiting, unspecified Condition: Improved Discharge Instructions: Dizziness Additional Instructions: Please use the prescribed meclizine for dizziness and Zofran for nausea or vomiting, stay well hydrated, please follow up with your primary care provider in the next few days. Please return to the emergency department for any new or worsening concerning symptoms including but not limited to vision changes, worsening symptoms, severe headache, persistent vomiting despite medications, or if you develop chest pain or shortness of breath. Referrals: NO PRIMARY CARE PROVIDER (PCP) Prescriptions ONDANSETRON ODT 4mg tablet (ONDANSETRON ODT) 4 Mg Tab.rapdis 1 TAB PO Q6H PRN PRN for nausea/vomiting for 4 Days, #16 TAB 0 Refills Prov: STIVEN TEJEDA [facility] 09/08/24 Meclizine Hcl (MECLIZINE HCL) 12.5 Mg Tablet 1 TAB PO Q8H PRN for dizziness/vertigo for 10 Days, #30 TAB 0 Refills Prov: STIVEN TEJEDA 09/08/24 Education Educated: Patient Educated regarding: diagnosis, treatment, prognosis, need for follow up Signature Scribe Signature: No scribe Attestation: The note accurately reflects work and decisions made by me.JOSELITO Ge 09/09/24 02:49 STIVEN TEJEDA September 08, 2024 19:38
[2024-09-08 19:55] LABS: BASOPHILS % (AUTO) 0.4 % (0-1); EOSINOPHILS % (AUTO) 0.7 % (0-6); HEMATOCRIT 42.9 % (42.0-52.0); HEMOGLOBIN 14.2 g/dl (14.0-17.9); LYMPHOCYTES # (AUTO) 1.3 X10'3 (1.1-4.8); LYMPHOCYTES % (AUTO) 25.7 % (21-51); MEAN CORPUSCULAR HEMOGLOBIN 30.7 PG (27.0-31.0); MEAN CORPUSCULAR HGB CONC 33.1 g/dL (33.0-36.5); MEAN CORPUSCULAR VOLUME 92.5 FL (78-98); MEAN PLATELET VOLUME 7.8 FL (7.4-10.4); MONOCYTES # (AUTO) 0.3 X10'3 (0-0.9); MONOCYTES % (AUTO) 6.9 % (2-12); NEUTROPHILS # (AUTO) 3.3 X10'3 (1.8-7.7); NEUTROPHILS % (AUTO) 66.3 % (42-75); PLATELET COUNT 207 X10'3 (140-440); RED BLOOD COUNT 4.63 X10'6 (4.70-6.10)
--- NOTE | 2024-09-08 20:01 | RADIOLOGY REPORT ---
CHEST RADIOGRAPH Indication: CP Technique: Single frontal view of the chest was obtained COMPARISON: DI CHEST,SINGLE VIEW on DOS: 09/09/23 FINDINGS: Lines and Tubes: None Lungs: Clear Pleura: No effusion. No pneumothorax. Cardiomediastinal contours: Unremarkable IMPRESSION: No abnormality demonstrated.
[2024-09-08 20:13] LABS: ALANINE AMINOTRANSFERASE 23 U/L (12-78); ALBUMIN 3.9 G/DL (3.4-5.0); ALKALINE PHOSPHATASE 105 IU/L (46-116); ANION GAP 7 (8-16); ASPARTATE AMINO TRANSFERASE 18 U/L (10-37); BILIRUBIN,TOTAL 0.5 MG/DL (0.1-1.0); BLOOD UREA NITROGEN 27 MG/DL (7-18); BUN/CREATININE RATIO 19.1 (10.0-20.0); CALCIUM 8.8 MG/DL (8.5-10.1); CHLORIDE 104 MMOL/L (99-107); CREATININE 1.41 MG/DL (0.60-1.10); GLUCOSE 111 MG/DL (70-104); LIPASE 98 U/L (16-77); POTASSIUM 4.6 MMOL/L (3.5-5.1); PRO BRAIN NATRIURETIC PEPTIDE 438 PG/ML (0-450); SODIUM 138 MMOL/L (135-145); TOTAL CARBON DIOXIDE 27.5 MMOL/L (24-32); TOTAL PROTEIN 7.8 G/DL (6.4-8.2); eGFR 48 ML/MIN
[2024-09-08] MEDS ORDERED: ondansetron/PF 4mg/2ml inj IV ONE (20:30)
[2024-09-08] MEDS: normal saline 1000ML IV soln IVB ONE (20:30)
--- NOTE | 2024-09-08 21:00 | ELECTROCARDIOGRAPH REPORT ---
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
[2024-09-08] MEDS: meclizine 12.5mg tablet PO ONE (22:07)
[2024-09-08] MEDS: ondansetron 4mg rapidly disintigrating tab PO ONE (22:07)
[2024-09-08] MEDS ORDERED: ONDA-243 PO (22:43)
[2024-09-08] MEDS ORDERED: MECL-231 PO (22:43)
[2024-09-08 23:15] VITALS: BP 163/78; PULSE 64; RESP 16; O2SAT 98
== END 2024-09-08 23:19 | disposition home or self-care (01) ==
LOC: ER 19:15
DX: R11.2 Nausea with vomiting, unspecified (principal); R42 Dizziness and giddiness; I10 Essential (primary) hypertension
CPT/HCPCS: 36415; 71045; 80053; 82948; 83690; 83880; 84484; 85025; 93005; 99285; J8597